=== PATIENT | male | born 1965 | race Caucasian/White ===

== ENCOUNTER → 2017-02-25 | Outpatient (CLI) | payer BC ==
[~2017-02-25] MED LIST: ALBU1AER9 INH; AMOX1TAB43 PO; CETITAB27 PO; SYMIN INH
--- NOTE | 2017-02-25 13:06 | DIAGNOSTIC IMAGING REPORT ---
CHEST 2 VIEWS ROUTINE CLINICAL HISTORY: ASTHMA, COUGH, SOB COMPARISON STUDY: 06/23/2015 FINDINGS: The cardiac and mediastinal contours are normal. There is no evidence of focal pulmonary consolidation. There is no evidence of failure. No pleural effusions are visualized.[ An opacity at the left lung base is felt to represent a combination of fat pad and atelectatic change. IMPRESSION: No active disease in the chest. Electronically signed by: Ashok Lo M.D. 02/25/2017 1:05 PM Dictated Date/Time: 02/25/2017 1:05 PM
== END | disposition home or self-care (01) ==
LOC: C.RAD1850 12:02
PROVIDERS: ATTEND Nurse Practitioner Adult Health
DX: J45.909 Unspecified asthma, uncomplicated (principal); R05 Cough; R06.02 Shortness of breath